=== PATIENT | male | born 1945 | race Caucasian/White ===

== ENCOUNTER 2018-02-26 06:56 | Day surgery (SDC) | payer MEDICARE ==
[2018-02-25 14:43] LABS: BASOPHILS % (AUTO) 0.2 % (0-1); EOSINOPHILS # (AUTO) 0.1 X10'3 (0-0.9); EOSINOPHILS % (AUTO) 1.4 % (0-6); HEMATOCRIT 35.4 % (42.0-52.0); HEMOGLOBIN 11.4 g/dl (14.0-17.9); LYMPHOCYTES # (AUTO) 0.8 X10'3 (1.1-4.8); LYMPHOCYTES % (AUTO) 11.6 % (21-51); MEAN CORPUSCULAR HEMOGLOBIN 26.3 PG (27.0-31.0); MEAN CORPUSCULAR HGB CONC 32.3 % (33.0-36.5); MEAN CORPUSCULAR VOLUME 81.4 FL (78-98); MONOCYTES # (AUTO) 0.4 X10'3 (0-0.9); MONOCYTES % (AUTO) 6.2 % (2-12); NEUTROPHILS # (AUTO) 5.5 X10'3 (1.8-7.7); NEUTROPHILS % (AUTO) 80.6 % (42-75); PLATELET COUNT 236 X10'3 (140-440); RED BLOOD COUNT 4.35 X10'6 (4.70-6.10); WHITE BLOOD COUNT 6.8 X10'3 (4.5-11.0)
[2018-02-25 14:52] LABS: ANION GAP 8 (8-16); BLOOD UREA NITROGEN 21 MG/DL (7-18); BUN/CREATININE RATIO 13.7 (5.4-32.0); CHLORIDE 103 MMOL/L (99-107); CREATININE 1.53 MG/DL (0.60-1.10); GLUCOSE 134 MG/DL (70-104); POTASSIUM 3.7 MMOL/L (3.5-5.1); SODIUM 140 MMOL/L (135-145); TOTAL CARBON DIOXIDE 29.2 MMOL/L (24-32)
[2018-02-25 14:53] LABS: ALBUMIN 2.5 G/DL (3.4-5.0); CALCIUM 8.5 MG/DL (8.5-10.1); eGFR 45 ML/MIN
[2018-02-25 14:56] LABS: PROTHROMBIN TIME 50.9 SECONDS (9.0-12.0)
[2018-02-25 15:00] LABS: INR 5.2 INR
[~2018-02-26] VITALS: Ht 182.9 cm; Wt 90.4 kg
[2018-02-26] VITALS (15 sets, daily range): BP systolic 81–113; BP diastolic 57–77
[~2018-02-26 06:56] MED LIST: AMIO200T57 PO; APIX5TAB3 PO; ATOR40TA PO; CARV-49 PO; COU4T PO; FINA5TAB11 PO; FLO0.4C PO; FURO-149 PO; NAPR220C15 PO; NORCO10T PO; OMEP-84 PO; POTA99TA18 PO; SILD100T PO
[2018-02-26] MEDS ORDERED: amiodarone in dextrose, iso-osm 150mg/100ml bag IV ONE (07:15)
[2018-02-26] MEDS ORDERED: LORazepam 0.5 MG tablet PO ONE (07:15)
[2018-02-26] MEDS ORDERED: morphine 10mg/ml inj. IV ONE (07:15)
[2018-02-26] MEDS ORDERED: diphenhydrAMINE 25mg capsule PO ONE (07:15)
[2018-02-26] MEDS ORDERED: normal saline 1000ml 1,000 ML IV SCH (07:15)
[2018-02-26] MEDS ORDERED: MIDAZolam 5mg/ml 2ml vial IV ONE (07:15)
[2018-02-26] MEDS ORDERED: atropine 0.1mg/ml 10ml syringe IV ONE (07:15)
[2018-02-26] MEDS ORDERED: VITA400C19 PO (08:07)
[2018-02-26] MEDS ORDERED: FURO-150 PO (08:07)
[2018-02-26] MEDS ORDERED: NAPR-56 PO (08:07)
[2018-02-26] MEDS ORDERED: COU4T PO (09:35)
[2018-02-26] MEDS ORDERED: amiodarone 150mg/dext, iso-os 100 ML IV ONE (10:51)
== END 2018-02-26 11:15 | disposition home or self-care (01) ==
LOC: SSTAY O 06:56
PROVIDERS: ATTEND Internal Medicine Cardiovascular Disease
DX: I48.0 Paroxysmal atrial fibrillation (principal); I48.92 Unspecified atrial flutter; J44.9 Chronic obstructive pulmonary disease, unspecified; I11.0 Hypertensive heart disease with heart failure; I50.9 Heart failure, unspecified; E78.5 Hyperlipidemia, unspecified; I25.2 Old myocardial infarction; I25.810 Atherosclerosis of coronary artery bypass graft(s) without angina pectoris; G47.33 Obstructive sleep apnea (adult) (pediatric); I44.7 Left bundle-branch block, unspecified; G89.29 Other chronic pain; K21.9 Gastro-esophageal reflux disease without esophagitis; N40.0 Benign prostatic hyperplasia without lower urinary tract symptoms; M19.90 Unspecified osteoarthritis, unspecified site; Z98.41 Cataract extraction status, right eye; Z86.14 Personal history of Methicillin resistant Staphylococcus aureus infection; Z86.74 Personal history of sudden cardiac arrest; Z87.891 Personal history of nicotine dependence; Z72.89 Other problems related to lifestyle; Z88.4 Allergy status to anesthetic agent; Z95.1 Presence of aortocoronary bypass graft; Z85.118 Personal history of other malignant neoplasm of bronchus and lung; Z90.2 Acquired absence of lung [part of]; Z79.01 Long term (current) use of anticoagulants; Z79.891 Long term (current) use of opiate analgesic; Z79.899 Other long term (current) drug therapy; Z98.890 Other specified postprocedural states
CPT/HCPCS: 36415; 80048; 85025; 85610; 92960; 93005; J0282; J2250; J2270; J7030; A4620; J0461